=== PATIENT | female | born 1985 | race Caucasian/White ===

== ENCOUNTER 2017-08-04 11:20 | Emergency (ER) | payer SELFPAY ==
[~2017-08-04] VITALS: Ht 160 cm; Wt 65.1 kg
[2017-08-04 11:21] VITALS: BP 109/75
[2017-08-04] MEDS ORDERED: CEFTRIAXONE 250 MG ONE (12:29)
[2017-08-04] MEDS ORDERED: AZITHROMYCIN 250 MG TABLET ONE (12:29)
[2017-08-04] MEDS ORDERED: AZITHROMYCIN 500 MG TABLET PO ONE (12:30)
[2017-08-04] MEDS ORDERED: CEFTRIAXONE 250 MG IM ONE (12:30)
[2017-08-04 13:04] LABS: AMPHETAMINE SCREEN, URINE Positive (Negative); BARBITURATE SCREEN, URINE Negative (Negative); BENZODIAZEPINE SCREEN, URINE Negative (Negative); CANNABINOID SCREEN, URINE Positive (Negative); COCAINE SCREEN, URINE Positive (Negative); METHADONE SCREEN, URINE Negative (Negative); OPIATE SCREEN, URINE Negative (Negative)
[2017-08-04 13:16] LABS: MICROSCOPIC INDICATED
[2017-08-04 13:17] LABS: CULTURE INDICATED? YES
== END 2017-08-04 14:01 | disposition home or self-care (01) ==
LOC: ED 13:55
DX: T76.21XA Adult sexual abuse, suspected, initial encounter (principal); F12.10 Cannabis abuse, uncomplicated; F14.10 Cocaine abuse, uncomplicated; F15.10 Other stimulant abuse, uncomplicated; N30.90 Cystitis, unspecified without hematuria; F17.200 Nicotine dependence, unspecified, uncomplicated; Z90.49 Acquired absence of other specified parts of digestive tract; Z60.9 Problem related to social environment, unspecified; Z72.89 Other problems related to lifestyle
CPT/HCPCS: 80307; 81001; 81025; 87077; 87086; 87186; 96372; 99284; J0696

== ENCOUNTER 2017-09-13 20:03 | Emergency (ER) | payer SELFPAY ==
[~2017-09-13] VITALS: Ht 167.6 cm; Wt 73.5 kg
[2017-09-13 20:05] VITALS: BP 118/80
[2017-09-13] MEDS ORDERED: DIPHENHYDRAMINE 25 MG CAPSULE ONE (20:20)
[2017-09-13] MEDS ORDERED: FAMOTIDINE 20 MG TABLET ONE (20:21)
[2017-09-13] MEDS ORDERED: FAMOTIDINE 20 MG TABLET PO ONE (20:30)
[2017-09-13] MEDS ORDERED: DIPHENHYDRAMINE 25 MG CAPSULE PO ONE (20:30)
== END 2017-09-13 22:09 | disposition home or self-care (01) ==
LOC: ED 21:14
DX: T78.49XA Other allergy, initial encounter (principal); J02.9 Acute pharyngitis, unspecified; F17.210 Nicotine dependence, cigarettes, uncomplicated; X58.XXXA Exposure to other specified factors, initial encounter
CPT/HCPCS: 70360; 99284; J7512; Q0163

== ENCOUNTER 2018-09-21 09:42 | Emergency (ER) | payer OTHER ==
[~2018-09-21] VITALS: Ht 160 cm; Wt 77.0 kg
--- NOTE | 2018-09-21 10:01 | NUR ---
ANTHONY COLLINS BS FOR EXAM. PT STATES SHE STARTED VOMITING ON SUNDAY, CP STARTED TODAY, EPIGASTRIC PAIN, CURRENTLY ON ANTIBIOTICS (STARTED 09/18/18) FOR BLADDER INFECTION. WAS SEEN AT [facility] ON 09/18/18 & 09/20/18. TOOK ZOFRAN & REGLAN THIS AM - VOMITED AFTERWARDS. REPORTS CONSTIPATION. LAST BM:"A FEW DAYS AGO" "IT WAS A LITTLE BIT". LAST ORAL INTAKE: FOOD ON SUNDAY, WATER TODAY. LMP: "A COUPLE OF WEEKS AGO".
[2018-09-21] MEDS ORDERED: MAGNESIUM (10:10)
[2018-09-21] MEDS ORDERED: ONDA4TAB12 PO (10:10)
[2018-09-21] MEDS ORDERED: METO10TA2 PO (10:10)
[2018-09-21] MEDS ORDERED: CEFD300C37 PO (10:10)
--- NOTE | 2018-09-21 10:14 | NUR ---
LABS DRAWN. PT TO XR PER BRENDAN.
[2018-09-21] MEDS ORDERED: PROMETHAZINE 25 MG/ML, 1ML ONE (10:27)
[2018-09-21] MEDS ORDERED: FAMOTIDINE 20 MG/2 ML ONE (10:27)
[2018-09-21] MEDS ORDERED: SODIUM CHLORIDE FLUSH 10ML SYR IVF ONE (10:30)
[2018-09-21] MEDS ORDERED: SODIUM CHLORIDE 0.9% 1,000ML IVBOLUS ONE (10:30)
[2018-09-21] MEDS ORDERED: PROMETHAZINE 25 MG/ML, 1ML IM ONE (10:30)
[2018-09-21] MEDS ORDERED: FAMOTIDINE 20 MG/2 ML IVP ONE (10:30)
[2018-09-21 10:42] LABS: ALANINE AMINOTRANSFERASE 25 U/L (12-78); ALBUMIN 4.1 g/dL (3.4-5.0); ANION GAP 11 mmol/L (5-15); CALCIUM 8.7 mg/dL (8.5-10.1); CHLORIDE 108 mmol/L (98-107); CREATININE 1.02 mg/dL (0.55-1.02)
[2018-09-21 10:47] LABS: ALKALINE PHOSPHATASE 64 U/L (45-117); BASOPHILS # (AUTO) 0.02 x10^3/uL (0-0.1); BASOPHILS % (AUTO) 0 % (0-1); BILIRUBIN,TOTAL 1.1 mg/dL (0.2-1.0); EOSINOPHILS # (AUTO) 0.02 x10^3/uL (0-0.4); EOSINOPHILS % (AUTO) 0 % (1-7); LYMPHOCYTES # (AUTO) 1.71 x10^3/uL (1-3.4); LYMPHOCYTES % (AUTO) 20 % (22-44); MD NO; MEAN CORPUSCULAR HEMOGLOBIN 29.2 pg (27.0-34.8); MEAN CORPUSCULAR HGB CONC 33.5 g/dL (32.4-35.8); MEAN CORPUSCULAR VOLUME 87.3 fL (80-100); MEAN PLATELET VOLUME 8.8 fL (7.4-10.4); MONOCYTES # (AUTO) 0.47 x10^3/uL (0.2-0.8); MONOCYTES % (AUTO) 6 % (2-9); NEUTROPHILS # (AUTO) 6.19 x10^3/uL (1.8-6.8); NEUTROPHILS % (AUTO) 74 % (42-75); PLATELET COUNT 282 x10^3/uL (130-400); RED BLOOD COUNT 4.92 x10^6/uL (3.82-5.3); RED CELL DISTRIBUTION WIDTH 13.3 % (9.6-15.2)
--- NOTE | 2018-09-21 10:49 | NUR ---
PIV INITIATED, PHENERGAN & FAMITODIDE GIVEN PER EMAR. CARDIAC & VS MONITORING IN PROGRESS (SINUS JOCE), SIDE RAIL UP X1, CALL LIGHT W/IN REACH, EMESIS BAG W/ PT, WARM BLANKET PROVIDED. PT AWARE OF NEED FOR URINE SPECIMEN.
--- NOTE | 2018-09-21 11:15 | NUR ---
PT TO RESTROOM W/ STEADY GAIT.
--- NOTE | 2018-09-21 11:31 | NUR ---
PT LYING ON GURNEY. MONITORING EQUIPMENT OFF. IV LINE UNATTACHED. PT STATES "A DANIELLE UNHOOKED IT" (PER ANTHONY CHAMORRO, PT TOLD HIM SHE UNHOOKED IV LINE TO GO TO BR). URINE SPECIMEN ON COUNTER. PT REPORTS PAIN STILL 10/12. MONITORING EQUIPMENT REAPPLIED, IV LINE REATTACHED.
[2018-09-21] MEDS ORDERED: METOCLOPRAMIDE 5 MG/ML, 2ML ONE (11:36)
--- NOTE | 2018-09-21 11:39 | NUR ---
REGLAN GIVEN PER EMAR
[2018-09-21 11:48] LABS: MICROSCOPIC NOT IND
[2018-09-21 11:55] LABS: CULTURE INDICATED? NO
[2018-09-21] MEDS ORDERED: METOCLOPRAMIDE 5 MG/ML, 2ML IVPush ONE (12:00)
[2018-09-21] MEDS ORDERED: HALOPERIDOL 5 MG/ML IV ONE (13:00)
[2018-09-21] MEDS ORDERED: HALOPERIDOL 5 MG/ML ONE (13:19)
--- NOTE | 2018-09-21 13:20 | NUR ---
PT RETURNED FROM CT
--- NOTE | 2018-09-21 13:25 | NUR ---
CARDIAC & VS MONITORING CONTINUING. HALDOL GIVEN PER EMAR. PT A&OX4, RESP EVEN & UNLABORED, SPEECH CLEAR, PT BURPING, EMESIS BAG IN HAND, SIDE RAILS UP X2, CALL LIGHT W/IN REACH. NAD AT THIS TIME.
--- NOTE | 2018-09-21 14:13 | NUR ---
PT SITTING QUIETLY ON BED, CARDIAC & VS MONITORING CONTINUING (SINUS JOCE). PT REPORTS SLIGHT IMPROVEMENT IN PAIN.
[2018-09-21 14:58] VITALS: BP 92/49
== END 2018-09-21 15:01 | disposition home or self-care (01) ==
LOC: ED 10:30
DX: K29.00 Acute gastritis without bleeding (principal); F17.200 Nicotine dependence, unspecified, uncomplicated; Z90.49 Acquired absence of other specified parts of digestive tract
CPT/HCPCS: 36415; 74022; 74176; 80053; 81003; 83690; 84703; 85025; 93005; 96361; 96372; 96374; 96375; 99284; J1630; J2550; J2765; J3490; J7030

== ENCOUNTER 2019-02-07 20:45 | Emergency (ER) | payer OTHER ==
[~2019-02-07] VITALS: Ht 165.1 cm; Wt 69.4 kg
[~2019-02-07 20:45] MED LIST: CEFD300C37 PO; MAGNESIUM; METO10TA2 PO; ONDA4TAB12 PO
--- NOTE | 2019-02-07 21:21 | NUR ---
THIS IS A 33 YO FEMALE COMING IN FOR N/V FOR PAST 4 DAYS. PATIENT STATES "I TAKE ZOFRAN BUT IT HASN'T BEEN WORKING. I WAS HOPING I COULD GET SOMETHING ELSE OR A SUPPOSITIORY". PATIENT DENIES DIARRHEA, DOES HAVE EPIGASTRIC PAIN 6/10 THAT IS CONSTANT. PATIENT HAS HISTORY OF 3 C-SECTIONS, AND RECENT HERNIA REPAIR. DENIES FEVERS. CALL LIGHT IN REACH, RESTING ON GURNEY WITH CHILD, DENIES NEEDS AT THIS TIME.
[2019-02-07] MEDS ORDERED: FAMOTIDINE 20 MG TABLET PO ONE (21:30)
[2019-02-07] MEDS ORDERED: PROMETHAZINE 25 MG/ML, 1ML IM ONE (21:30)
[2019-02-07] MEDS ORDERED: PROMETHAZINE 25 MG/ML, 1ML ONE (21:36)
[2019-02-07] MEDS ORDERED: FAMOTIDINE 20 MG TABLET ONE (21:36)
[2019-02-07 21:44] LABS: BASOPHILS # (AUTO) 0.08 x10^3/uL (0-0.1); BASOPHILS % (AUTO) 1 % (0-1); EOSINOPHILS # (AUTO) 0.09 x10^3/uL (0-0.4); EOSINOPHILS % (AUTO) 1 % (1-7); LYMPHOCYTES # (AUTO) 2.53 x10^3/uL (1-3.4); LYMPHOCYTES % (AUTO) 24 % (22-44); MD NO; MEAN CORPUSCULAR HEMOGLOBIN 29.7 pg (27.0-34.8); MEAN CORPUSCULAR HGB CONC 34.1 g/dL (32.4-35.8); MEAN CORPUSCULAR VOLUME 86.9 fL (80-100); MEAN PLATELET VOLUME 8.5 fL (7.4-10.4); MONOCYTES # (AUTO) 0.84 x10^3/uL (0.2-0.8); MONOCYTES % (AUTO) 8 % (2-9); NEUTROPHILS # (AUTO) 6.96 x10^3/uL (1.8-6.8); NEUTROPHILS % (AUTO) 66 % (42-75); PLATELET COUNT 350 x10^3/uL (130-400); RED BLOOD COUNT 5.08 x10^6/uL (3.82-5.3); RED CELL DISTRIBUTION WIDTH 12.9 % (9.6-15.2)
--- NOTE | 2019-02-07 21:51 | NUR ---
PATIENT MEDICATED PER EMAR, TOLERATED WELL. CALL LIGHT IN REACH, NAD, DENIES NEEDS AT THIS TIME.
[2019-02-07 21:54] LABS: ALANINE AMINOTRANSFERASE 26 U/L (12-78); ALBUMIN 4.2 g/dL (3.4-5.0); ANION GAP 10 mmol/L (5-15); CALCIUM 9.1 mg/dL (8.5-10.1); CHLORIDE 98 mmol/L (98-107); CREATININE 0.96 mg/dL (0.55-1.02)
[2019-02-07 21:59] VITALS: BP 108/61
[2019-02-07 21:59] LABS: ALKALINE PHOSPHATASE 73 U/L (45-117); TOTAL PROTEIN 7.7 g/dL (6.4-8.2)
[2019-02-07] MEDS ORDERED: POTASSIUM CHLORIDE 20 MEQ TAB.ER.PRT PO ONE (22:00)
--- NOTE | 2019-02-07 22:25 | NUR ---
MD TO ROOM TO DISCUSS PLAN OF CARE
[2019-02-07] MEDS ORDERED: POTASSIUM CHLORIDE 20 MEQ TAB.ER.PRT ONE (22:26)
--- NOTE | 2019-02-07 22:29 | NUR ---
PATIENT MEDICATED PER EMAR,TOLERATED WELL. DENIES NEEDS AT THIS TIME. CALL LIGHT IN REACH.
[2019-02-07] MEDS ORDERED: ONDANSETRON ODT 4 MG ONE (22:47)
[2019-02-07] MEDS ORDERED: ONDANSETRON ODT 4 MG PO ONE (23:00)
--- NOTE | 2019-02-07 23:08 | NUR ---
Patient/Caregiver given discharge instructions and they have confirmed that they understand the instructions. Patient ambulatory with steady gait.
== END 2019-02-07 23:10 | disposition home or self-care (01) ==
LOC: ED 22:15
DX: A08.4 Viral intestinal infection, unspecified (principal); E87.1 Hypo-osmolality and hyponatremia; R11.2 Nausea with vomiting, unspecified; F17.200 Nicotine dependence, unspecified, uncomplicated; Z90.49 Acquired absence of other specified parts of digestive tract
CPT/HCPCS: 36415; 80053; 83690; 84703; 85025; 96372; 99284; J2550; Q0162

== ENCOUNTER 2020-12-02 13:42 | Emergency (ER) | payer OTHER ==
[~2020-12-02] VITALS: Ht 160 cm; Wt 88.0 kg
[2020-12-02 15:33] VITALS: BP 112/67
== END 2020-12-02 15:57 | disposition home or self-care (01) ==
LOC: ED 15:45
DX: J01.00 Acute maxillary sinusitis, unspecified (principal); B34.9 Viral infection, unspecified; Z20.822 Contact with and (suspected) exposure to COVID-19; Z90.49 Acquired absence of other specified parts of digestive tract
CPT/HCPCS: 71045; 99284; U0003; U0005